=== PATIENT | female | born 1925 | race Caucasian/White ===

== ENCOUNTER 2017-07-07 11:36 | Observation (INO) | payer OTHER ==
[~2017-07-07] VITALS: Ht 154.9 cm; Wt 59.9 kg
[~2017-07-07 11:36] MED LIST: ACAI500 MG PO; ASPIR-LOW81 MG PO; CO Q-10200 MG PO; CYANOCOBALAM1000 MCG PO; DANDELION ROOT PO; GABAPENTIN400 MG PO; LIVALO4 MG PO; MILK THISTLE500 MG PO; NORTRIPTYLINE H10 MG PO; OMEGA 3 500 SO1 EACH PO; PLAVIX75 MG PO; RAMIPRIL10 MG PO; RELAFEN750 MG PO; RESVERATROL50 MG PO; ROBAXIN500 MG PO; TOPROL XL50 MG PO; ULTRACET1 TABLET PO; VITAMIN C1000 MG PO; VITAMIN D-32000 UNI2 PO; ZANTAC150 MG PO; ZETIA10 MG PO
[2017-07-07 12:36] LABS: EOSINOPHIL (%) 0 % (0-5); HEMATOCRIT 38.8 % (36.0-46.0); IMMATURE GRANULOCYTE (%) 0.4 % (0.0-0.7); INSTRUMENT ABS NEUTROPHIL CT 3.1 K/uL; LYMPHOCYTE COUNT 1.5 K/uL (1.0-2.8); MCH 29.7 PG (29.0-34.0); MCHC 33.2 G/DL (30.0-36.0); MCV 89.2 FL (83-99); MEAN PLAT.VOLUME 10.3 uM^3 (9.5-12.4); MONOCYTE (%) 10.8 % (3-12); MONOCYTE COUNT 0.6 K/uL (0-0.8); NEUTROPHIL COUNT 3.1 K/uL (1.8-6.4); PLATELET COUNT 177 K/uL (156-360); RBC DIS.WIDTH-CV 11.9 % (11.8-14.6); RBC DIS.WIDTH-SD 39.1 % (39-53); RED BLOOD COUNT 4.35 M/uL (3.80-5.20); WHITE BLOOD COUNT 5.1 K/uL (4.1-10.2)
[2017-07-07 12:42] LABS: INTER. NORMALIZED RATIO 1.1
[2017-07-07 12:44] LABS: PTT 28.8 SEC (25-37)
[2017-07-07 12:45] LABS: CHLORIDE 106 mEq/L (99-109); POTASSIUM 4.4 mEq/L (3.7-5.4); SODIUM 139 mEq/L (136-147)
[2017-07-07 12:47] LABS: GLUCOSE 96 mg/dL (70-99)
[2017-07-07 12:48] LABS: ANION GAP 6 MEQ/L (2-14)
[2017-07-07 12:51] LABS: GFR ESTIMATE (CALCULATED) > 59 mL/min/; UREA NITROGEN (BUN) 18 mg/dL (9-23)
[2017-07-07 12:56] LABS: TROP-I INTERPRETATION NEGATIVE; TROPONIN-I < 0.01 ng/mL (0.0-0.30)
[2017-07-07] MEDS ORDERED: ACAI500 MG PO (13:50)
[2017-07-07] MEDS ORDERED: VISTARIL25 MG PO (13:51)
[2017-07-07] MEDS ORDERED: ONCE DAILY1 EACH PO (13:51)
[2017-07-07] MEDS ORDERED: ALEVE LIQUID G220 MG PO (13:51)
[2017-07-07] MEDS ORDERED: [UNRECOGNIZED DRUG - OTHER] TP (13:53)
[2017-07-07 14:33] VITALS: BP 195/79
[2017-07-07 15:28] LABS: HDL CHOLESTEROL 48 MG/DL (Desirable>=50); LDL CHOLESTEROL 95 mg/dL (Desirable<100); NON-HDL CHOLESTEROL 122 mg/dL (Desirable<160); TOTAL CHOLESTEROL 170 mg/dL (Desirable<200); TRIGLYCERIDES 133 MG/DL (Normal: <150)
[2017-07-07 18:56] VITALS: BP 138/61
[2017-07-07 23:35] VITALS: BP 143/73
[2017-07-08 04:01] VITALS: BP 137/84
[2017-07-08 08:13] LABS: Estimated Average Glucose 126 mg/dL (70-123)
[2017-07-08 08:49] VITALS: BP 165/74
[2017-07-08 12:40] VITALS: BP 159/74
== END 2017-07-08 13:15 | disposition home or self-care (01) ==
LOC: EME 11:36 → 5WEST 13:37 → EDOF 13:37 → ENRESERV 13:38 → 5WEST 14:28
PROVIDERS: Emergency Medicine; Internal Medicine
DX: G45.9 Transient cerebral ischemic attack, unspecified (principal); E78.5 Hyperlipidemia, unspecified; I10 Essential (primary) hypertension; R20.2 Paresthesia of skin; F40.240 Claustrophobia; I25.10 Atherosclerotic heart disease of native coronary artery without angina pectoris; Z95.5 Presence of coronary angioplasty implant and graft; Z86.73 Personal history of transient ischemic attack (TIA), and cerebral infarction without residual deficits; Z96.641 Presence of right artificial hip joint; Z87.891 Personal history of nicotine dependence; Z79.82 Long term (current) use of aspirin; Z88.5 Allergy status to narcotic agent; Z88.6 Allergy status to analgesic agent; Z88.8 Allergy status to other drugs, medicaments and biological substances
CPT/HCPCS: 70450; 71010; 80048; 80061; 83036; 84484; 85025; 85027; 85610; 85730; 93005; 93880; 99281; 99285; G0378; J1650

== ENCOUNTER 2017-09-29 06:26 | Inpatient (IN) | payer OTHER ==
[~2017-09-29] VITALS: Ht 154.9 cm; Wt 58.0 kg
[~2017-09-29 06:26] MED LIST changes: +ALEVE LIQUID G220 MG PO; +BACK CREAM TP; +ONCE DAILY1 EACH PO; +VISTARIL25 MG PO
[2017-09-29 07:21] LABS: HEMATOCRIT 39.3 % (36.0-46.0); MCHC 33.1 G/DL (30.0-36.0); MCV 90.6 FL (83-99); PLATELET COUNT 161 K/uL (156-360); RBC DIS.WIDTH-CV 12.2 % (11.8-14.6); RBC DIS.WIDTH-SD 40.2 % (39-53); RED BLOOD COUNT 4.34 M/uL (3.80-5.20); WHITE BLOOD COUNT 5.6 K/uL (4.1-10.2)
[2017-09-29 07:31] LABS: PTT 23.1 SEC (25-37)
[2017-09-29 07:42] LABS: CHLORIDE 105 MEQ/L (99-109); POTASSIUM 4.3 MEQ/L (3.7-5.4); SODIUM 140 MEQ/L (136-147)
[2017-09-29 07:48] LABS: CREATININE 0.8 MG/DL (0.6-1.3); GFR ESTIMATE (CALCULATED) > 59 mL/min/; GLUCOSE 115 mg/dL (70-99); UREA NITROGEN (BUN) 17 mg/dL (9-23)
[2017-09-29] MEDS ORDERED: NEURONTIN300 MG PO (09:42)
[2017-09-29] MEDS ORDERED: EFUDEX 5% CREAM25 GM TP (09:43)
[2017-09-29] MEDS ORDERED: KENALOG,ARISTOC80 G1 TP (09:44)
[2017-09-29] MEDS ORDERED: ALTACE10 MG PO (09:44)
[2017-09-29] MEDS ORDERED: LOW DOSE ASPIRI81 M1 PO (09:46)
[2017-09-29 11:17] LABS: TROP-I INTERPRETATION NEGATIVE; TROPONIN-I < 0.01 ng/mL (0.0-0.30)
[2017-09-29 13:00] VITALS: BP 156/66
[2017-09-29 15:36] VITALS: BP 138/66
[2017-09-29 18:45] LABS: HEMATOCRIT 35.6 % (36.0-46.0); HEMOGLOBIN 11.7 G/DL (11.9-15.5); MCH 29.3 PG (29.0-34.0); MCHC 32.9 G/DL (30.0-36.0); MCV 89.2 FL (83-99); PLATELET COUNT 144 K/uL (156-360); RBC DIS.WIDTH-CV 12.1 % (11.8-14.6); RBC DIS.WIDTH-SD 39.5 % (39-53); RED BLOOD COUNT 3.99 M/uL (3.80-5.20); WHITE BLOOD COUNT 8.1 K/uL (4.1-10.2)
[2017-09-29 20:54] VITALS: BP 118/69
[2017-09-29 23:26] VITALS: BP 110/54
[2017-09-30 04:01] VITALS: BP 101/51
[2017-09-30 05:59] LABS: HEMATOCRIT 30.3 % (36.0-46.0); MCV 89.4 FL (83-99)
[2017-09-30 06:15] LABS: CHLORIDE 102 MEQ/L (99-109); GFR ESTIMATE (CALCULATED) 55 mL/min/; GLUCOSE 148 mg/dL (70-99); POTASSIUM 4.5 MEQ/L (3.7-5.4); SODIUM 136 MEQ/L (136-147); UREA NITROGEN (BUN) 25 mg/dL (9-23)
[2017-09-30 08:30] VITALS: BP 97/54
[2017-09-30 11:30] VITALS: BP 90/53
[2017-09-30 16:02] VITALS: BP 90/48
[2017-09-30 19:21] VITALS: BP 87/48
[2017-09-30 23:03] VITALS: BP 128/71
[2017-10-01 03:51] VITALS: BP 145/66
[2017-10-01 07:43] VITALS: BP 1374/63; BP 74/63
[2017-10-01 11:38] VITALS: BP 145/65; BP 145/654
[2017-10-01 15:57] VITALS: BP 143/61
[2017-10-01 20:01] VITALS: BP 127/59
[2017-10-02] VITALS (7 sets, daily range): BP systolic 120–190; BP diastolic 58–81
[2017-10-03] VITALS (7 sets, daily range): BP systolic 130–186; BP diastolic 64–84
[2017-10-04 03:59] VITALS: BP 150/68
[2017-10-04 07:28] VITALS: BP 140/52
[2017-10-04 11:43] VITALS: BP 142/61
[2017-10-04 16:21] VITALS: BP 150/56
[2017-10-04] MEDS ORDERED: TYLENOL REGULA325 MG PO (18:10)
[2017-10-04] MEDS ORDERED: HYDROCODON-ACE1 EAC7 PO (18:10)
[2017-10-04] MEDS ORDERED: LOVENOX30 MG/0.3 SC (18:10)
[2017-10-04] MEDS ORDERED: ALTACE10 MG PO (18:10)
[2017-10-04] MEDS ORDERED: BISACODYL5 MG PO (18:10)
[2017-10-04] MEDS ORDERED: DOCUSATE SODIU100 MG PO (18:10)
[2017-10-04 19:18] VITALS: BP 138/72
[2017-10-04 23:02] VITALS: BP 132/68
[2017-10-05 03:04] VITALS: BP 130/80
[2017-10-05 07:32] VITALS: BP 120/70
[2017-10-05] MEDS ORDERED: ALTACE10 MG PO (09:16)
[2017-10-05 12:52] VITALS: BP 120/70
[2017-10-05 15:41] VITALS: BP 122/64
== END 2017-10-05 17:08 | DRG 482 ==
LOC: EME → EDBD 06:26 → EME 06:26 → 3EAST 10:01 → EDOF 10:01 → ENRESERV 10:04 → EDOF 10:05 → ENRESERV 11:30 → 3EAST 12:39
PROVIDERS: Emergency Medicine Emergency Medical Services; Family Medicine Sports Medicine; Orthopaedic Surgery
PROC: 0QS736Z Reposition Left Upper Femur with Intramedullary Internal Fixation Device, Percutaneous Approach (ICD-10-PCS; principal; 2017-09-29)
DX: S72.142A Displaced intertrochanteric fracture of left femur, initial encounter for closed fracture (principal); I95.1 Orthostatic hypotension; I10 Essential (primary) hypertension; I25.10 Atherosclerotic heart disease of native coronary artery without angina pectoris; E78.5 Hyperlipidemia, unspecified; E11.9 Type 2 diabetes mellitus without complications; M19.90 Unspecified osteoarthritis, unspecified site; W18.30XA Fall on same level, unspecified, initial encounter; Y92.002 Bathroom of unspecified non-institutional (private) residence as the place of occurrence of the external cause; Z96.641 Presence of right artificial hip joint; I25.2 Old myocardial infarction; Z79.82 Long term (current) use of aspirin; Z86.73 Personal history of transient ischemic attack (TIA), and cerebral infarction without residual deficits; Z95.5 Presence of coronary angioplasty implant and graft; Z88.5 Allergy status to narcotic agent; Z87.891 Personal history of nicotine dependence
CPT/HCPCS: 71045; 73502; 73552; 76000; 80048; 81003; 84484; 85014; 85018; 85027; 85610; 85730; 86850; 86900; 86901; 93005; 94799; 97530 GO; 97530 GP; 99281; 99285; C1713; J1170; J1650; J1885; J2270; J2405; J3010; J7030; J7120